=== PATIENT | female | born 1945 | race Caucasian/White ===

== ENCOUNTER 2018-08-11 09:29 | Inpatient (IN) | payer OTHER ==
[2018-08-11 11:07] LABS: ADD MAN DIFF? NO
[2018-08-11 11:10] LABS: WHITE BLOOD COUNT 4.9 10^3/ul (4.8-10.8)
[2018-08-11 11:10] LABS: BASOPHILS % 0.6 % (0.0-2.0); EOSINOPHILS # 0.1 10^3/ul (0.0-0.5); EOSINOPHILS % 2.1 % (0.0-7.0); HEMATOCRIT 36.3 % (37.0-47.0); HEMOGLOBIN 11.8 g/dl (12.0-16.0); LYMPHOCYTES # 2.1 10^3/ul (0.8-2.9); LYMPHOCYTES % 43.5 % (15.0-51.0); MEAN CORPUSCULAR HEMOGLOBIN 30.3 pg (29.0-33.0); MEAN CORPUSCULAR HGB CONC 32.5 g/dl (32.0-37.0); MEAN CORPUSCULAR VOLUME 93.3 fl (82.0-101.0); MEAN PLATELET VOLUME 11.5 fl (7.4-10.4); MONOCYTE # 0.5 10^3/ul (0.3-0.9); MONOCYTES % 10.7 % (0.0-11.0); NEUTROPHIL # 2.1 10^3/ul (1.6-7.5); NEUTROPHILS % 42.9 % (39.0-77.0); PLATELET COUNT 184 10^3/UL (140-415); RED BLOOD COUNT 3.89 10^6/ul (4.20-5.40); RED CELL DISTRIBUTION WIDTH 13.7 % (11.5-14.5)
[2018-08-11 11:29] LABS: INR 0.92; PROTIME 12.5 Sec (11.9-14.9)
[2018-08-11 11:30] LABS: ALANINE AMINOTRANSFERASE 24 IU/L (13-69); ALBUMIN 4.4 g/dl (3.3-4.9); ALBUMIN/GLOBULIN RATIO 1.62; ALKALINE PHOSPHATASE 83 IU/L (42-121); ANION GAP 7 (5-13); ASPARTATE AMINO TRANSFERASE 30 IU/L (15-46); BILIRUBIN,INDIRECT 0.5 mg/dl (0-1.1); BILIRUBIN,TOTAL 0.5 mg/dl (0.2-1.3); BLOOD UREA NITROGEN 12 mg/dl (7-20); CALCIUM 9.4 mg/dl (8.4-10.2); CARBON DIOXIDE 28 mmol/L (21-31); CHLORIDE 107 mmol/L (97-110); CREATININE 0.54 mg/dl (0.44-1.00); GLUCOSE 89 mg/dl (70-220); POTASSIUM 4.1 mmol/L (3.5-5.1); SODIUM 142 mmol/L (135-144); TOTAL PROTEIN 7.1 g/dl (6.1-8.1)
[2018-08-11] MEDS ORDERED: ESMOLOL 100 MG INJ (12:00)
[2018-08-11] MEDS ORDERED: ROCURONIUM 50 MG INJ ×2 (12:00→12:13)
[2018-08-11] MEDS ORDERED: DESFLURANE 15 MIN (12:00)
[2018-08-11] MEDS: LACTATED RINGER'S 1,000 ML IV (12:02)
[2018-08-11] MEDS ORDERED: FENTAnyl 50 MCG/ML VIAL ×3 (12:12→15:06)
[2018-08-11] MEDS ORDERED: LIDOCAINE 2% (SDV) 5 ML INJ (12:13)
[2018-08-11] MEDS ORDERED: CEFAZOLIN 1 GM INJ (12:13)
[2018-08-11] MEDS ORDERED: PROPOFOL 0 ML (12:13)
[2018-08-11] MEDS ORDERED: METOCLOPRAMIDE 10 MG INJ (12:15)
[2018-08-11] MEDS ORDERED: DEXAMETHASONE 4 MG/ML 5 ML INJ (12:15)
[2018-08-11] MEDS ORDERED: ONDANSETRON 4 MG INJ (12:15)
[2018-08-11] MEDS ORDERED: FAMOTIDINE 20 MG INJ (12:16)
[2018-08-11] MEDS ORDERED: LIDOCAINE 4% (MPF) 5 ML INJ (12:18)
[2018-08-11 12:22] LABS: ADD UMIC YES; UR ASCORBIC ACID NEGATIVE (NEGATIVE); UR BILIRUBIN (Dip) NEGATIVE (NEGATIVE); UR BLOOD (Dip) 1+ mg/dL (NEGATIVE); UR CLARITY CLEAR (CLEAR); UR COLOR STRAW (YELLOW); UR GLUCOSE (Dip) NEGATIVE (NEGATIVE); UR KETONES (Dip) NEGATIVE (NEGATIVE); UR LEUKOCYTE ESTERASE (Dip) NEGATIVE Leu/ul (NEGATIVE); UR NITRITE (Dip) NEGATIVE (NEGATIVE); UR RBC 1 /HPF (0-5); UR SPECIFIC GRAVITY (Dip) 1.013 (1.003-1.030); UR TOTAL PROTEIN (Dip) NEGATIVE (NEGATIVE); UR UROBILINOGEN (Dip) NEGATIVE (NEGATIVE); UR WBC 0 /HPF (0-5)
[2018-08-11] MEDS ORDERED: LIDOCAINE 1%/EPI (1:100,000) (MDV) 20 ML (12:37)
[2018-08-11] MEDS: POLYMYXIN/BACITRACIN 1L IRRIG (13:55)
[2018-08-11] MEDS: GELATIN SIZE 100 SPONGE (13:55)
[2018-08-11] MEDS: THROMBIN 20,000 UNIT VIAL (13:55)
[2018-08-11] MEDS: LIDOCAINE 1%/EPI (1:100,000) (MDV) 20 ML (13:55)
[2018-08-11] MEDS ORDERED: LABETALOL HCL 20MG INJ IV (14:30)
[2018-08-11] MEDS ORDERED: hydrALAzine 20 MG INJ IV (14:30)
[2018-08-11] MEDS ORDERED: OXYCODONE/ACETAMINOPHEN (5/325) TAB PO ×2 (14:30)
[2018-08-11] MEDS ORDERED: HYDROmorphONE 1 MG/5 ML IV SYRINGE IV (14:30)
[2018-08-11] MEDS ORDERED: PROPOFOL 60 ML (15:06)
[2018-08-11] MEDS ORDERED: GELATIN SIZE 100 SPONGE (15:14)
[2018-08-11] MEDS ORDERED: GLYCOPYRROLATE 0.4 MG INJ (15:31)
[2018-08-11] MEDS ORDERED: NEOSTIGMINE 3 MG/3 ML SYRINGE (15:31)
[2018-08-11] MEDS ORDERED: ONDANSETRON 4 MG INJ IV (16:00)
[2018-08-11] MEDS ORDERED: niCARdipine 50 MG in SOD CHLORIDE 0.9% 480 ML IV (16:00)
[2018-08-11] MEDS: HYDROmorphONE 1 MG/5 ML IV SYRINGE IV ×2 (16:22→16:28)
[2018-08-11] MEDS: ONDANSETRON 4 MG INJ IV (16:23)
[2018-08-11] MEDS: MEPERIDINE 25 MG INJ IV (16:38)
[2018-08-11] MEDS: DEXTROSE 5%-LR 1,000 ML IV ×2 (20:04→23:50)
[2018-08-11] MEDS: ATORVASTATIN 20 MG TAB PO (21:31)
[2018-08-11] MEDS: CEFAZOLIN 1 GM/50 ML (PMX) 50 ML IVPB (21:31)
[2018-08-11] MEDS: morphine 4 MG/ML VIAL IV (21:39)
[2018-08-12] MEDS: HYDROCODONE/APAP (5/325) TAB PO ×3 (00:43→21:17)
[2018-08-12] MEDS: DEXTROSE 5%-LR 1,000 ML IV ×4 (02:14→23:11)
[2018-08-12 05:11] LABS: ADD MAN DIFF? NO
[2018-08-12 05:18] LABS: BASOPHILS % 0.1 % (0.0-2.0); HEMATOCRIT 25.3 % (37.0-47.0); HEMOGLOBIN 8.3 g/dl (12.0-16.0); LYMPHOCYTES # 0.8 10^3/ul (0.8-2.9); LYMPHOCYTES % 9.3 % (15.0-51.0); MEAN CORPUSCULAR HEMOGLOBIN 30.5 pg (29.0-33.0); MEAN CORPUSCULAR HGB CONC 32.8 g/dl (32.0-37.0); MEAN PLATELET VOLUME 11.9 fl (7.4-10.4); MONOCYTE # 0.7 10^3/ul (0.3-0.9); MONOCYTES % 8.3 % (0.0-11.0); NEUTROPHIL # 6.6 10^3/ul (1.6-7.5); NEUTROPHILS % 82.1 % (39.0-77.0); PLATELET COUNT 144 10^3/UL (140-415); RED BLOOD COUNT 2.72 10^6/ul (4.20-5.40)
[2018-08-12] MEDS: PANTOPRAZOLE (EC) 40 MG TAB PO (05:31)
[2018-08-12] MEDS: CEFAZOLIN 1 GM/50 ML (PMX) 50 ML IVPB ×3 (05:31→21:17)
[2018-08-12 05:42] LABS: ANION GAP 8 (5-13); BLOOD UREA NITROGEN 9 mg/dl (7-20); CALCIUM 8.2 mg/dl (8.4-10.2); CARBON DIOXIDE 25 mmol/L (21-31); CHLORIDE 106 mmol/L (97-110); CREATININE 0.47 mg/dl (0.44-1.00); GLUCOSE 175 mg/dl (70-220); POTASSIUM 4.4 mmol/L (3.5-5.1); SODIUM 139 mmol/L (135-144)
[2018-08-12] MEDS: LACTATED RINGER'S 1,000 ML IV (10:44)
[2018-08-12] MEDS: morphine 4 MG/ML VIAL IV (17:45)
[2018-08-12] MEDS: ATORVASTATIN 20 MG TAB PO (21:16)
[2018-08-13 05:06] LABS: ADD MAN DIFF? NO
[2018-08-13 05:16] LABS: WHITE BLOOD COUNT 7.6 10^3/ul (4.8-10.8)
[2018-08-13 05:16] LABS: BASOPHILS % 0.3 % (0.0-2.0); EOSINOPHILS # 0.1 10^3/ul (0.0-0.5); EOSINOPHILS % 0.7 % (0.0-7.0); HEMATOCRIT 25.1 % (37.0-47.0); HEMOGLOBIN 8.2 g/dl (12.0-16.0); LYMPHOCYTES % 25.7 % (15.0-51.0); MEAN CORPUSCULAR HEMOGLOBIN 30.6 pg (29.0-33.0); MEAN CORPUSCULAR HGB CONC 32.7 g/dl (32.0-37.0); MEAN CORPUSCULAR VOLUME 93.7 fl (82.0-101.0); MEAN PLATELET VOLUME 11.5 fl (7.4-10.4); MONOCYTE # 0.8 10^3/ul (0.3-0.9); NEUTROPHIL # 4.7 10^3/ul (1.6-7.5); PLATELET COUNT 133 10^3/UL (140-415); RED BLOOD COUNT 2.68 10^6/ul (4.20-5.40); RED CELL DISTRIBUTION WIDTH 13.7 % (11.5-14.5)
[2018-08-13] MEDS: PANTOPRAZOLE (EC) 40 MG TAB PO (05:33)
[2018-08-13] MEDS: CEFAZOLIN 1 GM/50 ML (PMX) 50 ML IVPB ×3 (05:34→21:09)
[2018-08-13] MEDS: HYDROCODONE/APAP (5/325) TAB PO ×3 (05:34→18:31)
[2018-08-13 05:40] LABS: ALANINE AMINOTRANSFERASE 24 IU/L (13-69); ALBUMIN 3.1 g/dl (3.3-4.9); ALBUMIN/GLOBULIN RATIO 1.34; ALKALINE PHOSPHATASE 46 IU/L (42-121); ANION GAP 4 (5-13); ASPARTATE AMINO TRANSFERASE 45 IU/L (15-46); BILIRUBIN,INDIRECT 0.4 mg/dl (0-1.1); BILIRUBIN,TOTAL 0.4 mg/dl (0.2-1.3); BLOOD UREA NITROGEN 8 mg/dl (7-20); CALCIUM 8.5 mg/dl (8.4-10.2); CARBON DIOXIDE 33 mmol/L (21-31); CHLORIDE 103 mmol/L (97-110); CREATININE 0.55 mg/dl (0.44-1.00); GLUCOSE 122 mg/dl (70-220); POTASSIUM 3.8 mmol/L (3.5-5.1); SODIUM 140 mmol/L (135-144); TOTAL PROTEIN 5.4 g/dl (6.1-8.1)
[2018-08-13] MEDS: DEXTROSE 5%-LR 1,000 ML IV ×2 (08:17→15:13)
[2018-08-13 15:28] LABS: IMMEDIATE SPIN CROSSMATCH 1 1
[2018-08-13] MEDS: ACETAMINOPHEN 325 MG TAB PO (17:04)
[2018-08-13 19:29] LABS: ADD UMIC NO; UR ASCORBIC ACID NEGATIVE (NEGATIVE); UR BILIRUBIN (Dip) NEGATIVE (NEGATIVE); UR BLOOD (Dip) NEGATIVE (NEGATIVE); UR CLARITY CLEAR (CLEAR); UR COLOR COLORLESS (YELLOW); UR GLUCOSE (Dip) NEGATIVE (NEGATIVE); UR KETONES (Dip) NEGATIVE (NEGATIVE); UR LEUKOCYTE ESTERASE (Dip) NEGATIVE Leu/ul (NEGATIVE); UR NITRITE (Dip) NEGATIVE (NEGATIVE); UR SPECIFIC GRAVITY (Dip) 1.009 (1.003-1.030); UR TOTAL PROTEIN (Dip) NEGATIVE (NEGATIVE); UR UROBILINOGEN (Dip) NEGATIVE (NEGATIVE)
[2018-08-13] MEDS: ATORVASTATIN 20 MG TAB PO (20:16)
[2018-08-13 21:52] LABS: PRETRANSFUSION BILIRUBIN 0.4 mg/dl
[2018-08-13 21:52] LABS: POST-TRANSFUSION BILIRUBIN 0.4 mg/dl
[2018-08-14] MEDS: DEXTROSE 5%-LR 1,000 ML IV ×4 (02:50→17:01)
[2018-08-14] MEDS: morphine 4 MG/ML VIAL IV (02:51)
[2018-08-14] MEDS: PANTOPRAZOLE (EC) 40 MG TAB PO (05:32)
[2018-08-14] MEDS: HYDROCODONE/APAP (5/325) TAB PO ×4 (05:32→19:31)
[2018-08-14 05:43] LABS: ADD MAN DIFF? NO
[2018-08-14 05:49] LABS: WHITE BLOOD COUNT 6.5 10^3/ul (4.8-10.8)
[2018-08-14 05:49] LABS: BASOPHILS % 0.2 % (0.0-2.0); EOSINOPHILS # 0.1 10^3/ul (0.0-0.5); HEMATOCRIT 23.5 % (37.0-47.0); HEMOGLOBIN 7.6 g/dl (12.0-16.0); LYMPHOCYTES # 1.4 10^3/ul (0.8-2.9); LYMPHOCYTES % 21.2 % (15.0-51.0); MEAN CORPUSCULAR HEMOGLOBIN 29.7 pg (29.0-33.0); MEAN CORPUSCULAR HGB CONC 32.3 g/dl (32.0-37.0); MEAN CORPUSCULAR VOLUME 91.8 fl (82.0-101.0); MEAN PLATELET VOLUME 11.8 fl (7.4-10.4); MONOCYTE # 0.7 10^3/ul (0.3-0.9); MONOCYTES % 11.2 % (0.0-11.0); NEUTROPHIL # 4.3 10^3/ul (1.6-7.5); NEUTROPHILS % 65.1 % (39.0-77.0); PLATELET COUNT 124 10^3/UL (140-415); RED BLOOD COUNT 2.56 10^6/ul (4.20-5.40); RED CELL DISTRIBUTION WIDTH 13.8 % (11.5-14.5)
[2018-08-14 06:18] LABS: ANION GAP 3 (5-13); BLOOD UREA NITROGEN 7 mg/dl (7-20); CALCIUM 8.3 mg/dl (8.4-10.2); CARBON DIOXIDE 32 mmol/L (21-31); CHLORIDE 104 mmol/L (97-110); CREATININE 0.47 mg/dl (0.44-1.00); GLUCOSE 122 mg/dl (70-220); POTASSIUM 3.5 mmol/L (3.5-5.1); SODIUM 139 mmol/L (135-144)
[2018-08-14] MEDS: POLYETHYLENE GLYCOL 17 GM PACKET PO (14:10)
[2018-08-14] MEDS: BISACODYL (EC) 5 MG TAB PO (14:10)
[2018-08-14] MEDS: ATORVASTATIN 20 MG TAB PO (20:21)
[2018-08-14] MEDS: SENNA TAB PO (20:21)
[2018-08-15] MEDS: HYDROCODONE/APAP (5/325) TAB PO ×4 (03:23→22:10)
[2018-08-15] MEDS: morphine 4 MG/ML VIAL IV (03:28)
[2018-08-15] MEDS: PANTOPRAZOLE (EC) 40 MG TAB PO (05:20)
[2018-08-15] MEDS: DEXTROSE 5%-LR 1,000 ML IV ×2 (05:20→20:37)
[2018-08-15] MEDS: SENNA TAB PO ×2 (08:40→20:37)
[2018-08-15] MEDS: POLYETHYLENE GLYCOL 17 GM PACKET PO (12:50)
[2018-08-15] MEDS: LACTULOSE 30ML CUP GTB (18:51)
[2018-08-15] MEDS: ATORVASTATIN 20 MG TAB PO (20:37)
[2018-08-16] MEDS: PANTOPRAZOLE (EC) 40 MG TAB PO (06:23)
[2018-08-16] MEDS: HYDROCODONE/APAP (5/325) TAB PO ×3 (07:45→20:00)
[2018-08-16] MEDS: SENNA TAB PO ×2 (09:00→20:00)
[2018-08-16] MEDS: DEXTROSE 5%-LR 1,000 ML IV (09:01)
[2018-08-16] MEDS: ATORVASTATIN 20 MG TAB PO (20:00)
[2018-08-17] MEDS: PANTOPRAZOLE (EC) 40 MG TAB PO (06:10)
[2018-08-17] MEDS: HYDROCODONE/APAP (5/325) TAB PO ×3 (06:10→18:45)
[2018-08-17] MEDS: DEXTROSE 5%-LR 1,000 ML IV (06:10)
[2018-08-17] MEDS: SENNA TAB PO (09:36)
[2018-08-17 10:20] LABS: ADD MAN DIFF? NO
[2018-08-17 10:25] LABS: WHITE BLOOD COUNT 4.6 10^3/ul (4.8-10.8)
[2018-08-17 10:25] LABS: BASOPHILS % 0.2 % (0.0-2.0); EOSINOPHILS # 0.1 10^3/ul (0.0-0.5); EOSINOPHILS % 2.6 % (0.0-7.0); HEMATOCRIT 25.9 % (37.0-47.0); HEMOGLOBIN 8.3 g/dl (12.0-16.0); LYMPHOCYTES % 21.7 % (15.0-51.0); MEAN CORPUSCULAR VOLUME 93.5 fl (82.0-101.0); MEAN PLATELET VOLUME 10.9 fl (7.4-10.4); MONOCYTE # 0.7 10^3/ul (0.3-0.9); MONOCYTES % 14.3 % (0.0-11.0); NEUTROPHIL # 2.8 10^3/ul (1.6-7.5); PLATELET COUNT 231 10^3/UL (140-415); RED BLOOD COUNT 2.77 10^6/ul (4.20-5.40); RED CELL DISTRIBUTION WIDTH 13.2 % (11.5-14.5)
[2018-08-17 10:43] LABS: ANION GAP 6 (5-13); BLOOD UREA NITROGEN 10 mg/dl (7-20); CALCIUM 8.7 mg/dl (8.4-10.2); CARBON DIOXIDE 31 mmol/L (21-31); CHLORIDE 101 mmol/L (97-110); CREATININE 0.54 mg/dl (0.44-1.00); GLUCOSE 115 mg/dl (70-220); POTASSIUM 3.7 mmol/L (3.5-5.1); SODIUM 138 mmol/L (135-144)
== END 2018-08-17 20:45 | disposition home health service (06) | DRG 460 ==
LOC: REC 09:29 → 6WM 08-13 07:07 → ICU 19:51
PROC: 0SG1071 Fusion of 2 or more Lumbar Vertebral Joints with Autologous Tissue Substitute, Posterior Approach, Posterior Column, Open Approach (ICD-10-PCS; principal; 2018-08-11 12:30)
PROC: 30233N1 Transfusion of Nonautologous Red Blood Cells into Peripheral Vein, Percutaneous Approach (ICD-10-PCS; 2018-08-11 13:10)
DX: M43.16 Spondylolisthesis, lumbar region (principal); M47.816 Spondylosis without myelopathy or radiculopathy, lumbar region; M48.061 Spinal stenosis, lumbar region without neurogenic claudication; E78.5 Hyperlipidemia, unspecified; K21.9 Gastro-esophageal reflux disease without esophagitis; D64.9 Anemia, unspecified; I95.89 Other hypotension
CPT/HCPCS: 36430; 71046; 72100; 80048; 80053; 81001; 81003; 85025; 85610; 85730; 86078; 86850; 86900; 86901; 86920; 87081; 87086; 93005; 97110; 97116; 97161; 97530